=== PATIENT | female | born 1965 | race Caucasian/White ===

== ENCOUNTER 2023-08-06 15:10 | Outpatient (CLI) | payer BC, SELFPAY ==
--- NOTE | ~2023-08-06 | XR_ITS ---
XR foot RT min 3V DATE: 08/06/2023 15:49 INDICATION: Right lateral foot pain after a fall 5 weeks ago. TECHNIQUE: 4 views COMPARISON: None FINDINGS: Prominent plantar and mild to moderate posterior calcaneal enthesopathy without associated erosive change or periostitis. Mild osteoarthritis at the first metatarsophalangeal joint. No fracture or dislocation, periosteal reaction or bone destruction is detected. IMPRESSION: No fracture or dislocation Calcaneal enthesopathy Reviewed, dictated and finalized at location L.
== END 2023-08-06 15:11 | disposition home or self-care (01) ==
LOC: CHSIMG 15:16
PROVIDERS: PCP Physician Assistant; Visit Provider Physician Assistant
DX: M79.671 Pain in right foot (principal); M77.31 Calcaneal spur, right foot
CPT/HCPCS: 73630